=== PATIENT | male | born 1940 | race Caucasian/White ===

== ENCOUNTER → 2016-12-18 | Day surgery (SDC) | payer OTHER ==
[2016-10-30 12:15] VITALS: BMI 26.0
[2016-11-30 11:26] VITALS: Ht 182.9 cm; Wt 86.4 kg
[~2016-12-18] VITALS: Ht 182.9 cm; Wt 86.4 kg
[~2016-12-18] MED LIST: ACETAMINOPHEN 325 MG TAB PO PRN; AMLO2.5T PO; ASCA500 PO; ASPI81TA28 PO; ATROPINE SULFATE 0.1 MG/ML 5ML SYR IV PRN; AcetylCHOLine CHL OP SOL 1:100 2 ML BTL ONE; BRIMONIDINE TART 0.2% OP SOLN PER DROP CHARGE ONE; BSS 500ML IRRIG ONE; BSS FLUSH ONE; CALC-214 PO; COEN75CA PO; DUTA0.5C PO; EpHEDrine SULFATE INJ 50 MG/ML AMP IV PRN; HEALON 10MG/ML 0.85 ML SYR INSTIL ONE; LACTATED RINGER'S 1000ML 500 ML IV SCH; LIDOCAINE 3.5% OPH GEL PER APPLICATION CHARGE OPR SCH; LIDOCAINE 4% OP SOLN DROP CHARGE ONE; LIDOCAINE 4% OP SOLN DROP CHARGE OPR SCH; LIDOCAINE HCL 1% MPF 2 ML VIAL ONE; LOSA100T2 PO; MOXIFLOXACIN OPH SOLN PER DROP CHARGE ONE; OMEG10007 PO; OXYC15TA89 PO; POVIDONE-IODINE OP SOLN 30 ML BTL ONE; PROPARACAINE 0.5% OP SOLN PER DROP CHARGE OPR SCH; SELE1TAB5 PO; SYMIN160 INH; TETRACAINE HCL (OPHTH) 60 DROPS/4 ML BTL OP ONE; TOBRAMYCIN/DEXAMETHASONE OPH OINT PER APPLN CHARGE ONE; TRAM-10 PO; VITA1TAB4 PO; VNTHFA/IN INH
[2016-12-18] MEDS: MOXIFLOXACIN OPH SOLN PER DROP CHARGE OPR SCH ×3 (09:22→09:43)
--- NOTE | 2016-12-18 09:50 | History & Physical Bridge - [place] ---
H&P Re-Evaluation Bridge Note: I have examined the patient, reviewed the History & Physical and in the interval since the performance of the History & Physical I have noted the following changes of clinical significance: No changes noted
[2016-12-18] MEDS: ATROPINE SULFATE 1% OP SOLN 2 ML BTL ONE ×2 (10:54→11:46)
[2016-12-18 12:03] VITALS: TEMP 36.7
--- NOTE | 2016-12-18 12:03 | [facility] Post Operative Brief Note ---
Immediate Operative Summary Operative Date Dec 18, 2016. 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 Letha Maguire Dictating Transcribing Machine Servicer Surgeon(s) 0 Estimated Blood Loss 0 Findings corneal edema right eye Specimens A. C&S Donor Corneal Rim Complication(s) None Disposition Recovery Room / PACU
--- NOTE | 2016-12-18 12:03 | Discharge Instructions-SurgCtr ---
Discharge Instructions Date of Service Dec 18, 2016. Visit Reason for Visit: Right Eye Endothelial Corneal Dystrophy Discharge Discharge Diagnosis / Problem: corneal edema/ fuchs dystrophy right eye Discharge Goals Goal(s): Improve function Medications Stopped Medications Name(s): stopped ASA 1 week ago Activity Recommendations Activity Limitations: per Instructions/Follow-up section Lifting Limitations: none Anesthesia . Post Anesthesia Instructions: If you have had General Anesthesia or IV Sedation: * Do not drive today. * Resume driving when surgeon permits. * Do not make important decisions or sign legal documents today. * Call surgeon for: 1. Temperature elevations greater than 101 degrees F. 2. Uncontrollable pain. 3. Excessive bleeding. 4. Persistent nausea and vomiting. 5. Medication intolerance (nausea, vomiting or rash). * For nausea and vomiting use only clear liquids such as: tea, soda, bouillon until nausea subsides, then gradually increase diet as tolerated. * If you have any concerns or questions, call your surgeon's office. If physician is unavailable and it is an emergency, call 911 or go to the nearest emergency room. . Instructions / Follow-Up Instructions / Follow-Up ACTIVITY RECOMMENDATIONS: * Bedrest (eyes to the eduarda) MEDICATIONS: Resume previous medications unless instructed otherwise by your surgeon. Eye drops (today and tomorrow): Vigamox or Cipro - one drop in operative eye 4 times daily Prednisolone 1% - one drop in operative eye 4 times daily SPECIAL CARE INSTRUCTIONS: * If any problems or concerns, please call Dr. Maguire's office at . * Keep plastic shield taped over eye to sleep at night. * Keep plastic shield taped over eye except to administer eye drops. * Keep plastic shield on until office visit the following day. FOLLOW UP VISIT: Follow-up with Dr. Maguire in the [place] office as scheduled. If not already scheduled, please call the office at . Diet Recommendations Home Diet: resume previous diet Procedures Procedures Performed: Right Descements Stripping Automated Endothelial Keratoplasty Pending Studies Studies pending at discharge: yes List of pending studies: cornea donor rim culture Medical Emergencies . Who to Call and When: Medical Emergencies: If at any time you feel your situation is an emergency, please call 911 immediately. . Non-Emergent Contact Non-Emergency issues call your: [employer] . . "Provider Documentation" section prepared by Tacho Maguire. .
[2016-12-18 12:54] VITALS: BP 171/81; PULSE 59; O2SAT 93
--- NOTE | 2016-12-18 12:56 | Anesthesia Progress Nt - [facility] ---
Anesthesia Post Op Note Date & Time Dec 18, 2016 at 12:56 Vital Signs Pain Intensity: 0 Vital Signs Past 12 Hours Date Time Temp Pulse Resp B/P (MAP) Pulse Ox O2 Delivery O2 Flow Rate FiO2 12/18/16 12:33 65 20 163/84 (110) 93 Room Air 12/18/16 12:03 36.7 56 18 185/90 (121) 96 Room Air 12/18/16 09:07 36.5 58 18 208/94 (132) 93 Room Air Notes Mental Status: alert / awake / arousable, participated in evaluation Pt Amnestic to Procedure: Yes Nausea / Vomiting: adequately controlled Pain: adequately controlled Airway Patency, RR, SpO2: stable & adequate BP & HR: stable & adequate Hydration State: stable & adequate Anesthetic Complications: no major complications apparent
--- NOTE | 2016-12-18 14:40 | OPERATIVE REPORT ---
DATE OF OPERATION: 12/18/2016 PREOPERATIVE DIAGNOSES: Corneal edema and Fuchs dystrophy, right eye. POSTOPERATIVE DIAGNOSES: Same. PROCEDURE PERFORMED: Descemet stripping automated endothelial keratoplasty, right eye. COMPLICATIONS: None. ESTIMATED BLOOD LOSS: None. ANESTHESIA: Local with sedation. DESCRIPTION OF PROCEDURE: After informed consent was obtained in the holding area, attention was first turned to the donor cornea. It was placed endothelial side up on the donor trephine and trephinated with an 8.0-mm Nicolasa trephine by myself. It was covered in Optisol and then set aside. The patient was then brought back to the operating room, where cardiac monitoring leads and oxygen by nasal cannula was administered by anesthesia. Gentle IV sedation was given and the patient's right eye was prepped and draped in usual sterile fashion. Wire lid speculum was placed in the right eye and the operating microscope was swung into position. Using 0.12 forceps and a supersharp blade, a paracentesis port was made at the 11 o'clock position of the patient's right eye. 1% nonpreserved lidocaine was injected into the anterior chamber for anesthesia. The previously used Nicolasa trephine was then inked and used to marni the surface of the cornea for an 8.0-mm diameter. A 2.2-mm keratome blade was then used to make a shelved clear cornea incision at the 9 o'clock position of the patient's right eye. The anterior chamber was then filled with Healon and a reversed Sinskey hook was used to score and strip Descemet's membrane from within the marked area. The Descemet stripper removed what had been stripped from the anterior chamber and the stromal editor managing director was then used to roughen the stromal bed in the periphery of the right eye. The main incision was then enlarged for a total of 4 mm and irrigation-aspiration handpiece was used to remove the viscoelastic material from the eye. The donor cornea was then placed endothelial side up on the EndoSerter device with a drop of Healon on the surface. It was then retracted into the EndoSerter. The EndoSerter was then used to inject the corneal graft into the anterior chamber through the primary incision. The graft was then unfolded underneath BSS and air and a single 10-0 nylon suture was placed through the main incision. Complete air fill of the eye was achieved and held for 10 minutes, during which time the corneal surface was covered in Healon. After the 10 minutes elapsed, a Chente Lasik roller was used to milk the interface of the graft. The eye was recoated with Healon and another 10 minutes elapsed. At the conclusion at 10 minutes, the Healon was removed from the surface of the eye. Partial air fluid exchange was done leaving behind a 50% air fill and ReSure sealant was placed over the paracentesis and primary incision. The wire lid speculum was then removed from the eye and the patient squeezed his eye. Upon examining him, the graft had shifted inferiorly. The patient's right eye was then prepped and redraped in the usual sterile fashion. A wire lid speculum was placed back into the right eye. Using a Wallace Lasik roller, the graft was massaged back into position. An Air on a cannula was placed through the paracentesis to reinflate the eye for complete air fill. Another 10 minutes elapsed, while the Healon was covering the surface of the eye, after which time a Wallace Lasik roller was again used to massage the interface to remove any fluid. A second 10 minutes elapsed, after which time atropine drops were placed on the surface of the eye. Some air was then removed from the anterior chamber, leaving behind a 70% air fill. ReSure sealant was placed back over the paracentesis. Wire lid speculum was then removed from the eye. The patient did not squeeze the eye tightly and the graft remained in position. Atropine drops, Vigamox and TobraDex ointment were then placed on the eye and the eye was shielded. The patient was sent to recovery area to lay flat for an hour prior to being discharged home. I attest to the content of the Intraoperative Record and any orders documented therein. Any exceptions are noted below. MTDD
== END | disposition home or self-care (01) ==
LOC: X.SURG 08:44
PROVIDERS: ATTEND Ophthalmology
DX: H18.20 Unspecified corneal edema (principal); H18.51 Endothelial corneal dystrophy; J44.9 Chronic obstructive pulmonary disease, unspecified; G47.33 Obstructive sleep apnea (adult) (pediatric); M19.90 Unspecified osteoarthritis, unspecified site; Z98.41 Cataract extraction status, right eye; Z68.26 Body mass index [BMI] 26.0-26.9, adult; Z86.73 Personal history of transient ischemic attack (TIA), and cerebral infarction without residual deficits